=== PATIENT | male | born 1995 | race Two or more races ===

== ENCOUNTER 2022-11-05 02:43 | Emergency (ER) | payer OTHER ==
[~2022-11-05] VITALS: Ht 182.9 cm; Wt 86.2 kg
== END 2022-11-05 05:43 | disposition home or self-care (01) ==
LOC: ER 02:43
DX: S09.90XA Unspecified injury of head, initial encounter (principal); R55 Syncope and collapse; W19.XXXA Unspecified fall, initial encounter; Y93.9 Activity, unspecified; Y92.9 Unspecified place or not applicable; Y99.9 Unspecified external cause status